=== PATIENT | male | born 1995 | race Caucasian/White ===

== ENCOUNTER 2020-02-28 13:12 | Emergency (ER) | payer SELFPAY ==
[2020-02-28 13:50] LABS: #Eosinphils 0.2 thou/uL (0.0-0.7); #Lymphocytes 1.7 thou/uL (1.20-3.40); #Monocytes 0.4 thou/uL (0.11-0.59); %Basophils 0.7 % (0.0-1.0); %Lymphocytes 27.1 % (21.0-51.0); %Monocytes 6.9 % (0.0-10.0); %Neutrophils 62.4 % (42.0-75.0); Hemoglobin 15.4 g/dL (14.0-18.0); Mean Corpuscular HGB CONC 32.8 g/dL (32.0-36.0); Mean Corpuscular Hemoglobin 28.8 pg (27.0-31.0); Mean Corpuscular Volume 87.8 fL (78.0-98.0); Platelet Count 266 thou/uL (130-400); RBC Distribution Width 11.6 % (11.5-14.5); Red Blood Cell (RBC) Count 5.36 mill/uL (4.70-6.10); White Blood Cell (WBC) Count 6.4 thou/uL (4.8-10.8)
[2020-02-28 14:12] LABS: ALT (SGPT) 33 U/L (8-55); AST (SGOT) 27 U/L (5-34); Albumin 4.7 g/dL (3.5-5.0); Alkaline Phosphatase 66 U/L (40-110); Anion Gap 14 mmol/L (10-20); BUN (Urea Nitrogen) 14 mg/dL (8.9-20.6); Bilirubin, Total 0.4 mg/dL (0.2-1.2); Calc. Creatinine Clearance 0 mL/min (70-130); Calcium 9.6 mg/dL (7.8-10.44); Carbon Dioxide 27 mmol/L (22-29); Chloride 108 mmol/L (98-107); Estimated GFR-MDRD 86; Globulin 2.6 g/dL (2.4-3.5); Glucose 86 mg/dL (70-105); Potassium 4.2 mmol/L (3.5-5.1); Protein, Total 7.3 g/dL (6.0-8.3); Sodium 145 mmol/L (136-145)
--- NOTE | 2020-02-28 14:13 | RAD ---
RADIOGRAPH CHEST 1 VIEW: DATE: 02/28/2020 HISTORY: 24-year-old male with chills, nausea, and dyspnea. FINDINGS: There are no air space densities, pulmonary edema, pneumothorax, or cardiomegaly. The lateral costop hrenic angles are sharp. IMPRESSION: No acute cardiopulmonary findings. jn [] POS: JIN
[2020-02-28] MEDS ORDERED: Ketorolac Tromethamine 30 MG/ML VIAL ONE ×2 (14:29→15:05)
[2020-02-28 15:27] LABS: Bacteria/HPF None Seen HPF (None Seen); Bilirubin Negative (Negative); Blood, Urine Negative (Negative); Clarity Clear (Clear); Glucose, Urine (Dipstick) Normal (Negative); Leukocyte Negative Leu/uL (Negative); Nitrite Negative (Negative); Protein, Urine (Dipstick) 30 mg/dL (Neg-Trace); RBC/HPF 0-3 HPF (0-3); Squamous Epithelial None Seen HPF (0-3); Urobilinogen Normal mg/dL (Less than 2)
[2020-02-28 15:33] LABS: Amphetamine Detected (NotDetected); Barbiturates Screen Not Detected (NotDetected); Benzodiazepine Screen Not Detected (NotDetected); Cocaine Metabolite Screen Not Detected (NotDetected); Medtox Control Line Valid? VALID (VALID); Medtox Reader # READER 4; Methadone Not Detected (NotDetected); Methamphetamine Not Detected (NotDetected); Opiate Screen Not Detected (NotDetected); Oxycodone Screen Not Detected (NotDetected); Phencyclidine (PCP) Not Detected (NotDetected); THC/Cannabinoid Screen Detected (NotDetected); Tricyclic Screen Not Detected (NotDetected)
[2020-02-28 15:36] LABS: Sperm/HPF 3+ HPF (None Seen)
--- NOTE | 2020-03-03 09:46 | RAD ---
RADIOGRAPH CHEST 1 VIEW: DATE: 02/28/2020 HISTORY: 24-year-old male with chills, dyspnea, and nausea. FINDINGS: There are no air space densities, pulmonary edema, pneumothorax, or cardiomegaly. The lateral costop hrenic angles are sharp. There is a mild scoliosis of the thoracic spine. IMPRESSION: 1. No acute cardiopulmonary findings. 2. Mild scoliosis. jatinder [] POS: JIN
== END 2020-02-28 16:27 | disposition home or self-care (01) ==
LOC: ERS 13:12
DX: R11.2 Nausea with vomiting, unspecified (principal); F41.9 Anxiety disorder, unspecified; F32.9 Major depressive disorder, single episode, unspecified; F17.210 Nicotine dependence, cigarettes, uncomplicated
CPT/HCPCS: 71045; 80053; 80306; 81003; 81015; 85025; 93005; 96361; 96374; J1885

== ENCOUNTER 2020-04-18 02:49 | Emergency (ER) | payer BC ==
[2020-04-18] MEDS ORDERED: Adacel (T-DAP) 0.5 ML SYRINGE ONE (03:08)
[2020-04-18] MEDS ORDERED: Fentanyl 100 MCG/2 ML VIAL ONE (03:08)
[2020-04-18 03:15] LABS: #Basophils 0.1 thou/uL (0.0-0.2); #Eosinphils 0.3 thou/uL (0.0-0.7); #Lymphocytes 3.2 thou/uL (1.20-3.40); #Monocytes 0.5 thou/uL (0.11-0.59); #Neutrophils 7.1 thou/uL (1.40-6.50); %Basophils 0.5 % (0.0-1.0); %Eosinophils 2.4 % (0.0-10.0); %Lymphocytes 29.1 % (21.0-51.0); %Monocytes 4.7 % (0.0-10.0); %Neutrophils 63.4 % (42.0-75.0); Hemoglobin 16.2 g/dL (14.0-18.0); Mean Corpuscular HGB CONC 33.1 g/dL (32.0-36.0); Mean Corpuscular Volume 87.5 fL (78.0-98.0); Mean Platelet Volume 8.3 fL (7.4-10.4); Platelet Count 235 thou/uL (130-400); RBC Distribution Width 11.5 % (11.5-14.5); White Blood Cell (WBC) Count 11.1 thou/uL (4.8-10.8)
[2020-04-18 03:37] LABS: ALT (SGPT) 24 U/L (8-55); AST (SGOT) 25 U/L (5-34); Albumin 4.7 g/dL (3.5-5.0); Alkaline Phosphatase 62 U/L (40-110); Anion Gap 12 mmol/L (10-20); BUN (Urea Nitrogen) 13 mg/dL (8.9-20.6); Bilirubin, Total 0.8 mg/dL (0.2-1.2); Calc. Creatinine Clearance 0 mL/min (70-130); Calcium 9.2 mg/dL (7.8-10.44); Carbon Dioxide 26 mmol/L (22-29); Chloride 107 mmol/L (98-107); Estimated GFR-MDRD 86; Globulin 2.6 g/dL (2.4-3.5); Glucose 98 mg/dL (70-105); Potassium 3.4 mmol/L (3.5-5.1); Protein, Total 7.3 g/dL (6.0-8.3); Sodium 142 mmol/L (136-145)
[2020-04-18] MEDS ORDERED: Bacitracin 1 PK ONE ×2 (04:51)
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
[2020-04-18] MEDS ORDERED: Iopamidol-370 76% 500 ML 1 ML ONE (10:51)
== END 2020-04-18 06:30 | disposition home or self-care (01) ==
LOC: ERS 02:49
DX: S42.001A Fracture of unspecified part of right clavicle, initial encounter for closed fracture (principal); S51.011A Laceration without foreign body of right elbow, initial encounter; S80.211A Abrasion, right knee, initial encounter; S60.811A Abrasion of right wrist, initial encounter; S40.212A Abrasion of left shoulder, initial encounter; F41.9 Anxiety disorder, unspecified; F32.9 Major depressive disorder, single episode, unspecified; F17.210 Nicotine dependence, cigarettes, uncomplicated; F17.220 Nicotine dependence, chewing tobacco, uncomplicated; V20.4XXA Motorcycle driver injured in collision with pedestrian or animal in traffic accident, initial encounter; Z23 Encounter for immunization
CPT/HCPCS: 12001; 70450; 71260; 72125; 74177; 80053; 85025; 90471; 90715; 96374; J3010; Q9967

== ENCOUNTER 2020-04-26 14:12 | Emergency (ER) | payer BC ==
[2020-04-26] MEDS ORDERED: Cyclobenzaprine 10 MG TAB ONE (14:34)
== END 2020-04-26 15:40 | disposition home or self-care (01) ==
LOC: ERS 14:12
DX: S51.011D Laceration without foreign body of right elbow, subsequent encounter (principal); F17.210 Nicotine dependence, cigarettes, uncomplicated; V89.2XXD Person injured in unspecified motor-vehicle accident, traffic, subsequent encounter